=== PATIENT | female | born 1930 | race Caucasian/White ===

== ENCOUNTER 2018-03-03 14:38 | Emergency (ER) | payer MEDICARE, OTHER ==
[~2018-03-03] VITALS: Ht 165.1 cm; Wt 68.0 kg
--- NOTE | 2018-03-03 14:43 | NUR ---
PT BIBA FOR GEN WEAK TO BED 12
[2018-03-03 14:44] VITALS: BP 148/78
--- NOTE | 2018-03-03 14:52 | NUR ---
PATIENT PRESENTS TO ED BY VANDANA FROM [facility] FOR INCREASED WEAKNESS AND N/V: SINCE LAST NIGHT AND ABNORMAL LAB VALUE OF BUN 35.5. SKIN IS PINK/WARM/DRY; AAOX HER NAME ; HR EVEN AND REGULAR; PT DENIES ANY FEVER, CP, SOB, OR COUGH AT THIS TIME; PATIENT STATES PAIN OF 0/10 AT THIS TIME; VSS; PATIENT POSITIONED FOR COMFORT; HOB ELEVATED; BEDRAILS UP X2; BED DOWN. ER MD MADE AWARE OF PT STATUS. CONTRACTED BILATERAL LOWER EXTREMETIES, AND BILATERAL ARMS CONTRACTED. WILL CONTINUIE TO MONITOR .
--- NOTE | 2018-03-03 15:00 | NUR ---
PT. HAD LARGE GREEN LOOSE STOOL, NO BLOOD PRESENT. PT WAS CHANGED.
[2018-03-03] MEDS ORDERED: NACL 0.9% 1,000 ML IV SCH (15:01)
[2018-03-03] MEDS ORDERED: CLOP75TA55 PO (15:05)
[2018-03-03] MEDS ORDERED: MELA5TAB5 PO (15:05)
[2018-03-03] MEDS ORDERED: MULT1SGL58 PO (15:05)
[2018-03-03] MEDS ORDERED: MEMA28CE1 PO (15:05)
[2018-03-03] MEDS ORDERED: DOCU-299 PO (15:05)
[2018-03-03] MEDS ORDERED: ACET-2619 PO (15:05)
[2018-03-03] MEDS ORDERED: DEPSPR125 PO (15:05)
--- NOTE | 2018-03-03 15:05 | NUR ---
DAUGHTER AT BEDSIDE.
--- NOTE | 2018-03-03 15:15 | NUR ---
PT. REFUSED IN AND OUT WILLIS CATHETER TO OBTAIN URINE SAMPLE. DR. NETTLES NOTIFIED, EVALUATED PT AT BEDSIDE.
--- NOTE | 2018-03-03 15:53 | NUR ---
PT TAKEN TO CT
--- NOTE | 2018-03-03 17:28 | NUR ---
pt & daughter want to wait for lab & x ray results & don't want IV fluid at this time. Pt can drink 2 glasses of water & juice.
--- NOTE | 2018-03-03 17:30 | NUR ---
received called from NICHOLAS Qiu from [facility] asked for pt's information.
[2018-03-03 17:36] LABS: BASOPHILS % (AUTO) 0.3 % (0.0-2.0); EOSINOPHILS # (AUTO) 0.1 K/uL (0-0.4); EOSINOPHILS % (AUTO) 0.9 % (0.0-4.0); HEMATOCRIT 39.6 % (36-48); HEMOGLOBIN 12.6 g/dL (12.0-16.0); LYMPHOCYTES # (AUTO) 1.6 K/uL (2.5-16.5); LYMPHOCYTES % (AUTO) 29.5 % (20.5-51.1); MEAN CORPUSCULAR HEMOGLOBIN 27 pg (27-31); MEAN CORPUSCULAR HGB CONC 32 g/dL (33-37); MEAN CORPUSCULAR VOLUME 86.2 fL (80-94); MONOCYTES # (AUTO) 0.7 K/uL (0.8-1.0); MONOCYTES % (AUTO) 12.3 % (1.7-9.3); NEUTROPHILS # (AUTO) 3.1 K/uL (1.8-7.7); PLATELET COUNT (AUTO) 175 K/uL (140-450); RED BLOOD CELL COUNT(AUTO) 4.59 MIL/uL (4.20-5.40); RED CELL DISTRIBUTION WIDTH 15.3 % (11.6-13.7); WHITE BLOOD COUNT (AUTO) 5.5 K/uL (4.8-10.8)
--- NOTE | 2018-03-03 17:39 | NUR ---
DAUGHTER AT BEDSIDE. Patient appears to be resting comfortably in bed. BP 160/78,PULSE OX 98%; DENIES [place] OR DIZINESS AT THIS TIME, Respirations even and unlabored.WILL CONTINUE TO MONITOR.
[2018-03-03 17:44] LABS: ANION GAP 11.7 (8-16); CARBON DIOXIDE 29.2 mmol/L (21-32); CHLORIDE 111 mmol/L (98-107); GLUCOSE 159 mg/dL (74-106); POTASSIUM 3.9 mmol/L (3.5-5.1); SODIUM SERUM 148 mmol/L (136-145); UREA NITROGEN, BLOOD 30 mg/dL (7-18)
--- NOTE | 2018-03-03 17:48 | NUR ---
PROVIED FOOD TO PT.
[2018-03-03 17:53] LABS: ALBUMIN 2.8 g/dL (3.4-5.0); AMYLASE 41 U/L (25-115); ASPARTATE AMINOTRANSFERASE 17 U/L (15-37); LIPASE 84 U/L (73-393); TOTAL BILIRUBIN 0.3 mg/dL (0.0-1.0)
--- NOTE | 2018-03-03 18:06 | NUR ---
Patient discharged with v/s stable. Written and verbal after care instructions given and explained. Patient alert, oriented and verbalized understanding of instructions. [facility]. All questions addressed prior to discharge. ID band removed. Patient advised to follow up with PMD. Rx of PEDIALYTE given. Patient educated on indication of medication including possible reaction and side effects. Opportunity to ask questions provided and answered.
--- NOTE | 2018-03-03 19:10 | NUR ---
REPORT TO NICHOLAS SHAFFER. 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
--- NOTE | 2018-03-03 19:20 | NUR ---
RECEIVED REPORT FROM AM NURSE. PT FAMILY AT BEDSIDE. PT RESTING COMFORTABLY, RR EVEN AND UNLABORED. ALL NEEDS MET. AWAITING FOR [facility] AT THIS TIME.
--- NOTE | 2018-03-03 20:30 | NUR ---
PT RESTING COMFORTABLY, RR EVEN AND UNLABORED. VSS. FOLLOWED UP WITH TAX COLLECTOR, STILL AWAITING [facility].
[2018-03-03 22:30] VITALS: BP 124/64
--- NOTE | 2018-03-03 22:40 | NUR ---
PT PICKED UP BY [facility] AT THIS TIME, REPORT GIVEN. PT RESTING COMFORTABLY, VSS. ALL BELONGINGS WITH PT. CONDITION STABLE.
== END 2018-03-03 18:06 | disposition home or self-care (01) ==
LOC: MED 14:38
DX: E86.0 Dehydration (principal); N18.9 Chronic kidney disease, unspecified; F03.90 Unspecified dementia, unspecified severity, without behavioral disturbance, psychotic disturbance, mood disturbance, and anxiety; F31.9 Bipolar disorder, unspecified; R53.1 Weakness; Z88.0 Allergy status to penicillin; Z86.2 Personal history of diseases of the blood and blood-forming organs and certain disorders involving the immune mechanism
CPT/HCPCS: 36415; 70450; 71045; 80053; 82150; 82550; 83690; 84484; 85025; 93005; 99285; C1758; Q0092